=== PATIENT | female | born 1955 | race Caucasian/White ===

== ENCOUNTER 2019-03-18 15:31 | Inpatient (IN) | payer OTHER ==
[~2019-03-18] VITALS: Wt 85.0 kg
[2019-03-18] MEDS ORDERED: MULT-902 PO (17:20)
[2019-03-18] MEDS ORDERED: morphine 4 MG/ML VIAL IV STA (17:40)
--- NOTE | 2019-03-18 17:49 | CONS ---
Assessment/Plan Assessment/Plan Assessment/Plan (Daily) Pt is 63 yo female who presents with completely dislocated ankle with impending open fracture of the RIGHT ANKLE DISTAL TIBIAL PILON AND FIBULA FRACTURE - PLAN FOR URGENT RIGHT ANKLE DISTAL TIBIAL PILON AND FIBULA FRACTURE CLOSED REDUCTION AND PLACEMENT OF EXTERNAL FIXATOR - NPO - IVF - PREOP CLEARANCE BY HOSPITALIST - STEPHEN TO THE RIGHT LEG - plan for CT scan post op with plan to return to the OR in 1-2 weeks once the swelling has resolved for final fixation -- Ciera RIVERA MD Consultation Date/Type/Reason Admit Date/Time 03/18/19 Date of Consultation: March 18, 2019 Type of Consult Orthopedic Surgery Date/Time of Note DATE: 03/18/19 TIME: 17:43 Hx of Present Illness Patient is a 63-year-old female who presented from clinic today with a fracture dislocation of the right medial pilon and fibula. Patient had a slip and fall on 03/15/2019 during work and initially went to [facility] where x- rays were obtained and patient was not reduced and put into a short leg splint. Patient was sent urgently to the emergency room from clinic today given her significantly desiccated ankle fracture that had impending potential to break through the skin to become an open fracture. Patient currently denies any numbness or tingling however reports a significant amount of pain. Musculoskeletal: bone/joint pain, restricted range of motion, swelling Past Medical History Medical History: no pertinent history Home Meds Reported Medications Multivitamin/Iron/Folic Acid (Centrum Adults Tablet) 1 Each Tablet, 1 EACH PO DAILY, TAB 03/18/19 Medications Current Medications Ondansetron HCl (Zofran Inj) 4 mg BRIDGE ORDER PRN IV NAUSEA/VOMITING; Start 03/18/19 at 18:00; Stop 03/19/19 at 17:59 Acetaminophen (Tylenol Tab) 650 mg ER BRIDGE PRN PO .MILD PAIN 1-3 OR TEMP; Start 03/18/19 at 18:00; Stop 03/19/19 at 17:59 Allergies: Coded Allergies: No Known Allergy (Unverified , 03/18/19) Past Surgical History Right knee surgery Family History Significant Family History: no pertinent family hx Social History Alcohol Use: none Smoking Status: Never smoker Drug Use: none Exam/Review of Systems Exam Vitals Vital Signs Date Temp Pulse Resp B/P (MAP) Pulse Ox O2 O2 Flow FiO2 Time Delivery Rate 03/18/19 97.8 103 18 143/76 99 15:37 (98) Constitutional: alert, oriented, well developed Musculoskeletal: other (RLE/ Splint intact with fracture blisters, medially and latera, toes wiggle, SILT to the m/l/d/p/fdws, cr brisk with significant swelling and effusion) Results Result Diagram: 03/18/19 1700 03/18/19 1700 Results 24hrs Laboratory Tests Test 03/18/19 17:00 White Blood Count 9.5 Red Blood Count 4.18 L Hemoglobin 12.8 Hematocrit 39.1 Mean Corpuscular Volume 93.5 Mean Corpuscular Hemoglobin 30.6 Mean Corpuscular Hemoglobin Concent 32.7 Red Cell Distribution Width 11.9 Platelet Count 253 Mean Platelet Volume 10.2 Immature Granulocytes % 0.200 Neutrophils % 69.7 Lymphocytes % 21.5 Monocytes % 8.1 Eosinophils % 0.1 Basophils % 0.4 Nucleated Red Blood Cells % 0.0 Immature Granulocytes # 0.020 Neutrophils # 6.6 Lymphocytes # 2.0 Monocytes # 0.8 Eosinophils # 0.0 Basophils # 0.0 Nucleated Red Blood Cells # 0.0 Sodium Level 140 Potassium Level 5.7 H Chloride Level 104 Carbon Dioxide Level 27 Anion Gap 9 Blood Urea Nitrogen 17 Creatinine 0.59 Est Glomerular Filtrat Rate mL/min > 60 Glucose Level 94 Calcium Level 9.2 Total Bilirubin 0.9 Direct Bilirubin 0.00 Indirect Bilirubin 0.9 Aspartate Amino Transf (AST/SGOT) 79 H Alanine Aminotransferase (ALT/SGPT) 17 Alkaline Phosphatase 85 Total Protein 8.7 H Albumin 4.6 Globulin 4.10 H Albumin/Globulin Ratio 1.12 Medications Medication Current Medications Ondansetron HCl (Zofran Inj) 4 mg BRIDGE ORDER PRN IV NAUSEA/VOMITING; Start 03/18/19 at 18:00; Stop 03/19/19 at 17:59 Acetaminophen (Tylenol Tab) 650 mg ER BRIDGE PRN PO .MILD PAIN 1-3 OR TEMP; Start 03/18/19 at 18:00; Stop 03/19/19 at 17:59 ANIBAL RIVERA MD March 18, 2019 17:48
[2019-03-18] MEDS ORDERED: CEFAZOLIN 2 GM/50 ML (PMX) 50 ML IVPB ONE (18:00)
[2019-03-18] MEDS ORDERED: ONDANSETRON 4 MG INJ IV PRN ×4 (18:00→23:00)
[2019-03-18] MEDS ORDERED: ACETAMINOPHEN 325 MG TAB PO PRN (18:00)
--- NOTE | 2019-03-18 18:25 | HP ---
Date/Time of Note Date/Time of Note DATE: 03/18/19 TIME: 18:17 Assessment/Plan VTE Prophylaxis Pharmacological prophylaxis: NA/contraindicated Pharm contraindication: surgical contra Assessment/Plan Assessment/Plan 63 yo woman with no PMH presents with R ankle fracture #R ankle fracture - Plan for operative fixation tonight by Dr. Pardo - IV opioid analgesics for pain control. NPO until surgery - Patient reports ability to attain >5 METS without chest pain. She is medically optimized for surgery with no further cardiac or medical workup needed prior to OR. #Hyperkalemia - True hyperkalemia rarely appears in the presence of normal renal function and the absence of other metabolic abnormalities. - Likely pseudohyperkalemia from hemolysis. Will repeat BMP in AM. Result Diagram: 03/18/19 1700 03/18/19 1700 HPI/ROS Admit Date/Time Admit Date/Time 03/18/19 Hx of Present Illness Ms Hoover is a pleasant 63-year-old woman sent to the ED by Dr. Pardo with a fracture dislocation of the right medial pilon and fibula. She had a slip and fall on 03/15/2019 during work and initially went to [facility] where x-rays were obtained and patient was not reduced and put into a short leg splint. Patient was sent urgently to the emergency room from [facility] today given her significantly desiccated ankle fracture that had impending potential to break through the skin to become an open fracture. Patient currently denies any numbness or tingling however rep orts a significant amount of pain. She reports good exercise tolerance with the ability to climb two flights of stairs without dyspnea or chest pain. Denies heart failure symptoms like orthopnea or PND. ROS 12 point review of systems done, negative except per HPI. PMH/Family/Social Past Medical History Medical History: no pertinent history Medications Current Medications Ondansetron HCl (Zofran Inj) 4 mg BRIDGE ORDER PRN IV NAUSEA/VOMITING Last administered on 03/18/19at 17:45; Admin Dose 4 MG; Start 03/18/19 at 18:00; Stop 03/19/19 at 17:59 Acetaminophen (Tylenol Tab) 650 mg ER BRIDGE PRN PO .MILD PAIN 1-3 OR TEMP; Start 03/18/19 at 18:00; Stop 03/19/19 at 17:59 Cefazolin Sodium/ Dextrose 50 ml @ 100 mls/hr PRE-OP ONCE IVPB ; Start 03/18/19 at 18:00; Stop 03/18/19 at 18:29 Coded Allergies: No Known Allergy (Unverified , 03/18/19) Past Surgical History R knee repair after skiing accident Family History Significant Family History: no pertinent family hx Social History 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 Alcohol Use: occasionally Smoking Status: Never smoker Drug Use: none Exam/Review of Systems Vital Signs Vitals Vital Signs Date Temp Pulse Resp B/P (MAP) Pulse Ox O2 O2 Flow FiO2 Time Delivery Rate 03/18/19 97.8 103 18 143/76 99 15:37 (98) Exam Exam Gen: Well appearing woman in some discomfort Eyes: PERRL, no icterus HEENT: Moist mucous membranes, clear oropharynx Neck: Supple, no JVD Card: Regular rate and rhythm, no murmurs Pulm: Clear to auscultation bilaterally Abd: Soft, nontender, nondistended Ext: R ankle in rigid cast. L leg no edema, good peripheral pulses. Skin: warm, dry, well perfused. ANNAMARIA QUINTEROS MD March 18, 2019 18:25
[2019-03-18] MEDS ORDERED: NACL 0.9% 3 ML SYG IV SCH (18:30)
--- NOTE | 2019-03-18 19:27 | ERD ---
ER Documentation Chief Complaint Chief Complaint send by dr horton [facility]op [facility] HPI 63-year-old female presenting with right ankle pain. She was sent here by her orthopedist for urgent surgery. Patient had a fall about 3 days ago at ground level. She went to an outside ER and was referred to orthopedics. She denies any numbness or tingling in her right lower extremity. She denies any other injuries from the fall. Currently her pain is an 8 out of 10. Worse with movement. ROS All systems reviewed and are negative except as per history of present illness. Medications Home Meds Reported Medications Multivitamin/Iron/Folic Acid (Centrum Adults Tablet) 1 Each Tablet, 1 EACH PO DAILY, TAB 03/18/19 Allergies Allergies: Coded Allergies: No Known Allergy (Unverified , 03/18/19) PMhx/Soc Medical and Surgical Hx: pt denies Medical Hx History of Surgery: Yes (Right knee surgery) Hx Alcohol Use: Yes (Occasionally) Hx Substance Use: No Hx Tobacco Use: No Smoking Status: Never smoker FmHx Family History: No diabetes Physical Exam Vitals Vital Signs Date Temp Pulse Resp B/P (MAP) Pulse Ox O2 O2 Flow FiO2 Time Delivery Rate 03/18/19 97.8 103 18 143/76 99 15:37 (98) Physical Exam Const: No acute distress Head: Atraumatic Eyes: Normal Conjunctiva ENT: Normal External Ears, Nose and Mouth. Neck: Full range of motion. No meningismus. Resp: Clear to auscultation bilaterally Cardio: Regular rate and rhythm, no murmurs Abd: Soft, non tender, non distended. Normal bowel sounds Skin: No petechiae or rashes Back: No midline or flank tenderness Ext: Right lower extremity in splint. Good cap refill at the toes. Sensation intact in all toes of the right foot. Knee right lower extremity above the knee appears normal without any deformities. Full range of motion of the hip and knee. All other extremities normal to inspection and palpation. Neur: Awake and alert Psych: Normal Mood and Affect Result Diagram: 03/18/19 1700 03/18/19 1700 Results 24 hrs Laboratory Tests Test 03/18/19 17:00 White Blood Count 9.5 10^3/ul Red Blood Count 4.18 10^6/ul Hemoglobin 12.8 g/dl Hematocrit 39.1 % Mean Corpuscular Volume 93.5 fl Mean Corpuscular Hemoglobin 30.6 pg Mean Corpuscular Hemoglobin Concent 32.7 g/dl Red Cell Distribution Width 11.9 % Platelet Count 253 10^3/UL Mean Platelet Volume 10.2 fl Immature Granulocytes % 0.200 % Neutrophils % 69.7 % Lymphocytes % 21.5 % Monocytes % 8.1 % Eosinophils % 0.1 % Basophils % 0.4 % Nucleated Red Blood Cells % 0.0 /100WBC Immature Granulocytes # 0.020 10^3/ul Neutrophils # 6.6 10^3/ul Lymphocytes # 2.0 10^3/ul Monocytes # 0.8 10^3/ul Eosinophils # 0.0 10^3/ul Basophils # 0.0 10^3/ul Nucleated Red Blood Cells # 0.0 10^3/ul Sodium Level 140 mmol/L Potassium Level 5.7 mmol/L Chloride Level 104 mmol/L Carbon Dioxide Level 27 mmol/L Anion Gap 9 Blood Urea Nitrogen 17 mg/dl Creatinine 0.59 mg/dl Est Glomerular Filtrat Rate mL/min > 60 mL/min Glucose Level 94 mg/dl Calcium Level 9.2 mg/dl Total Bilirubin 0.9 mg/dl Direct Bilirubin 0.00 mg/dl Indirect Bilirubin 0.9 mg/dl Aspartate Amino Transf (AST/SGOT) 79 IU/L Alanine Aminotransferase (ALT/SGPT) 17 IU/L Alkaline Phosphatase 85 IU/L Total Protein 8.7 g/dl Albumin 4.6 g/dl Globulin 4.10 g/dl Albumin/Globulin Ratio 1.12 Current Medications Medications Dose Sig/Arslan Start Time Status Last (Trade) Ordered Route PRN Stop Time Admin Dose Reason Admin Ondansetron 4 mg BRIDGE ORDER 03/18/19 03/18/19 HCl (Zofran PRN IV 18:00 17:45 Inj) NAUSEA/VOMITI 03/19/19 17:59 NG 650 mg ER BRIDGE 03/18/19 Acetaminophen PRN PO 18:00 (Tylenol .MILD PAIN 03/19/19 17:59 Tab) 1-3 OR TEMP Morphine 4 mg ONCE STAT 03/18/19 DC 03/18/19 Sulfate IV 17:40 17:45 (morphine) 03/18/19 17:41 Cefazolin 50 ml @ PRE-OP ONCE 03/18/19 DC 03/18/19 Sodium/ 100 mls/hr IVPB 18:00 19:18 Dextrose 03/18/19 18:29 Morphine 4 mg Q3H PRN 03/18/19 Sulfate IV SEVERE 18:30 (morphine) PAIN LEVEL 7-10 Sodium 1,000 ml @ [id number] IV 03/18/19 Chloride 75 mls/hr 21:00 IV Flush 3 ml PER 03/18/19 (NS 3 ml) PROTOCOL IV 18:30 Ondansetron 4 mg Q6H PRN 03/18/19 HCl (Zofran IV 18:30 Inj) NAUSEA/VOMITI NG Procedures/MDM EMERGENT LABS AND DIAGNOSTIC STUDIES: Lab Results above were reviewed and interpreted by me. CBC: no anemia or evidence of infection CMP: Hyperkalemia without evidence of renal failure. Likely lab error. Repeat pending. No e/o severe acidosis, alkalosis, renal failure, diabetic ketoacidosis, liver disease Coags unremarkable 12-lead EKG was interpreted by Rashi Garcia MD: Normal Sinus Rhythm with ventricular rate of 86 beats per minute Normal axis Normal intervals Nonspecific T wave abnormality in V4 and V5 No acute ST or T wave changes suggestive of acute ischemia or STEMI. Radiology Results as interpreted by Radiology below were reviewed by SGrant Garcia MD: Chest x-ray shows no significant abnormalities Initial Nursing notes reviewed. Previous Medical Records requested via the Electronic Health Record. EMERGENCY DEPARTMENT COURSE / MEDICAL DECISION MAKING: Patient is presenting with right ankle fracture that needs external fixation. She has no other complaints today. She was given morphine for her pain. Her preop labs were ordered and showed hyperkalemia, but there is no evidence of renal failure, so I feel this is a lab error. Chest x-ray and EKG were ordered and were unremarkable. I communicated this lab abnormality with the admitting doctor. Inpatient team to follow-up on repeat potassium and clear patient for surgery today. Accepting Care Team: Current data and ongoing care discussed. Time: Time of admission Primary Provider: Dr. Veloz Consulting: Dr. Horton Outstanding Data: repeat potassium Departure Diagnosis: Primary Impression: Closed right ankle fracture Encounter type: initial encounter Qualified Codes: S82.891A - Other fracture of right lower leg, initial encounter for closed fracture Condition: JHONATAN Pereyra MD March 18, 2019 19:27
[2019-03-18] MEDS ORDERED: DIPHENHYDRAMINE 25 MG CAP PO PRN (20:30)
[2019-03-18] MEDS ORDERED: CEFAZOLIN 1 GM INJ IV SCH (20:30)
--- NOTE | 2019-03-18 21:51 | PREAC ---
Date/Time of Note Date/Time of Note DATE: 03/18/19 TIME: 21:50 Anesthesia Eval and Record Evaluation Time Pre-Procedure Interview DATE: 03/18/19 TIME: 21:50 Age 63 Sex female NPO: 8 hrs Preoperative diagnosis Right Ankle Fracture Planned procedure Right Ankle Closed reduction and external fixation Past Medical History Past Medical History: None Surgery & Anesthesia Issues No known issue Meds Anticoagulation: No Beta Hubert within 24 hr: No Reason Beta Hubert not given: Pt. not on B-Hubert Reported Medications Multivitamin/Iron/Folic Acid (Centrum Adults Tablet) 1 Each Tablet, 1 EACH PO DAILY, TAB 03/18/19 Current Medications Ondansetron HCl (Zofran Inj) 4 mg BRIDGE ORDER PRN IV NAUSEA/VOMITING Last administered on 03/18/19at 17:45; Admin Dose 4 MG; Start 03/18/19 at 18:00; Stop 03/19/19 at 17:59 Acetaminophen (Tylenol Tab) 650 mg ER BRIDGE PRN PO .MILD PAIN 1-3 OR TEMP; Start 03/18/19 at 18:00; Stop 03/19/19 at 17:59 Morphine Sulfate (morphine) 4 mg Q3H PRN IV SEVERE PAIN LEVEL 7-10; Start 03/18/19 at 18:30 Sodium Chloride 1,000 ml @ 75 mls/hr [id number] IV ; Start 03/18/19 at 21:00 IV Flush (NS 3 ml) 3 ml PER PROTOCOL IV ; Start 03/18/19 at 18:30 Ondansetron HCl (Zofran Inj) 4 mg Q4H PRN IV NAUSEA AND/OR VOMITING; Start 03/18/19 at 20:30 Diphenhydramine HCl (Benadryl) 25 mg Q4H PRN PO ITCHING; Start 03/18/19 at 20:30 Rivaroxaban (Xarelto) 10 mg WITH DINNER PO ; Start 03/19/19 at 18:00 Cefazolin Sodium 50 ml @ 100 mls/hr Q8H IVPB ; Start 03/19/19 at 03:00; Stop 03/20/19 at 19:29 Meds reviewed: Yes Allergies Coded Allergies: No Known Allergy (Unverified , 03/18/19) Allergies Reviewed: Yes Labs/Studies Labs Reviewed: Reviewed by anesthesiologist Result Diagram: 03/18/19 1700 03/18/19 1943 Laboratory Tests 03/18/19 17:00 03/18/19 19:43 test: N/A Studies: ECG (n/a), CXR (n/a) Pre-procedure Exam Last vitals Vital Signs Date Temp Pulse Resp B/P (MAP) Pulse Ox O2 O2 Flow FiO2 Time Delivery Rate 03/18/19 97.8 94 18 136/75 99 Room Air 17:00 (95) Airway: Adequate mouth opening, Adequate thyromental dist Mallampati: Mallampati II Teeth: Normal Lung: Normal Heart: Normal ASA Physical Status ASA physical status: 2 Emergency: None Planned Anesthetic General/MAC: ETT Nerve block: Femoral (right), Sciatic (right) Planned Pain Management Single shot nerve block, Parenteral pain med Pre-operative Attestations Prior to commencing anesthesia and surgery, the patient was re-evaluated, there was verification of: *The patient's identity *The results of appropriate recent lab work and preoperative vital signs *The above evaluation not changing prior to induction *Anesthetic plan, risk benefits, alternative and complications discussed with patient/family; questions answered; patient/family understands, accepts and wishes to proceed. PETE CARR MD March 18, 2019 21:51
[2019-03-18] MEDS ORDERED: ROCURONIUM 50 MG INJ ONE (21:54)
[2019-03-18] MEDS ORDERED: PROPOFOL 20 ML ONE (21:54)
[2019-03-18] MEDS ORDERED: CEFAZOLIN 1 GM INJ ONE (21:54)
[2019-03-18] MEDS ORDERED: MIDAZOLAM 1 MG/ML 2 ML INJ ONE (21:55)
[2019-03-18] MEDS ORDERED: ROPIVACAINE 0.5 % 30 ML VIAL ONE (21:56)
[2019-03-18] MEDS ORDERED: SEVOFLURANE 15 MIN ONE (22:00)
[2019-03-18] MEDS ORDERED: PHENYLephrine (100 MCG/ML) 10ML SYG ONE (22:00)
[2019-03-18] MEDS ORDERED: KETOROLAC 30 MG INJ ONE (22:20)
[2019-03-18] MEDS ORDERED: DEXAMETHASONE 4 MG/ML 5 ML INJ ONE (22:20)
[2019-03-18] MEDS ORDERED: METOCLOPRAMIDE 10 MG INJ ONE (22:20)
[2019-03-18] MEDS ORDERED: ONDANSETRON 4 MG INJ ONE (22:20)
[2019-03-18] MEDS ORDERED: hydrALAzine 20 MG INJ IV PRN (23:00)
[2019-03-18] MEDS ORDERED: EPHEDrine 25 MG/5 ML SYG IV PRN (23:00)
[2019-03-18] MEDS ORDERED: FENTAnyl 50 MCG/ML VIAL IV PRN ×3 (23:00)
[2019-03-18] MEDS ORDERED: OXYCODONE/ACETAMINOPHEN (5/325) TAB PO PRN ×2 (23:00)
[2019-03-18] MEDS ORDERED: DIPHENHYDRAMINE 50 MG INJ IV PRN (23:00)
[2019-03-18] MEDS ORDERED: LABETALOL HCL 20MG INJ IV PRN (23:00)
[2019-03-18] MEDS ORDERED: METOCLOPRAMIDE 10 MG INJ IV PRN (23:00)
[2019-03-18] MEDS ORDERED: MEPERIDINE 25 MG INJ IV PRN (23:00)
[2019-03-18] MEDS ORDERED: HYDROmorphONE 1 MG/5 ML IV SYRINGE IV PRN ×3 (23:00)
[2019-03-18] MEDS ORDERED: NEOMYC/POLYMYX/BACIT 30 GM OINT ONE (23:33)
[2019-03-18] MEDS ORDERED: SUGAMMADEX SODIUM 200 MG/2 ML VIAL IV ONE (23:38)
[2019-03-19] VITALS (42 sets, daily range): BP systolic 81–144; BP diastolic 50–92; PULSE 73–170; RESP 10–24
--- NOTE | 2019-03-19 00:08 | OPR ---
Date/Time of Note Date/Time of Note DATE: 03/19/19 TIME: 00:01 Operative Report Procedure Date: March 19, 2019 Preoperative Diagnosis Right ankle distal tibial pilon and fibula fracture dislocation Postoperative Diagnosis Right ankle distal tibial pilon and fibula fracture dislocation Operation/Procedure Performed Right ankle distal tibial pilon and fibular fracture dislocation closed reduction Right ankle external fixator placement multiplanar Surgeon Isael Rivera MD [employer] None Anesthesia Type: general Anesthesiologist: PETE CARR MD Tourniquet Time: None Estimated Blood Loss: minimal Transfusion none Specimen None Grafts/Implants 2 5.0 mm Schanz pins in 1 6.0 mm Schanz pin with pin to bar and bar to bar construct Complications none Pt Condition Post Procedure: stable Disposition: PACU Indications Patient is a 63-year-old female who sustained a right ankle fracture location 2 days ago. Patient presented initially with a complete ankle fracture dislocation of the tibial peel on and fibula given the significant displacement and amount of swelling and fracture blistering patient indicated for urgent closed reduction and external fixator placement... Risk Note: Patient was explained the risks and benefits of surgery and the patient's cachil dehe language including not limited to infection, bleeding, injury to blood vessels, nerves, ligaments or tendons. Risks of anesthesia, deep vein thrombosis and need for reduce future surgery. Patient acknowledged these risk by signing the surgical consent form. Procedure Description Patient was met in the preoperative holding area the operative extremity was marked and confirmed with both the patient and the consent. Patient was then brought to the operative theater placed supine the operative table given preoperative antibiotics and preoperative anesthesia. Patient was then prepped draped in normal sterile fashion and all parties in the room agreed it was correct patient extremity and procedure. Attention was initially turned to the midshaft of the tibia where the first pin was established and inserted medially to the tibial shaft and initially drilled and the pin was placed with care to avoid any significant placement past the posterior cortex. Attention was then turned to the calcaneal pin which was placed medially to laterally with care to avoid any injury to the surrounding neurovascular structures which was placed behind the posterior tibial artery, nerve and vein. The pin was brought to the lateral side. And the pin-to-bar construct was then placed with x-rays confirming that the ankle mortise was been brought out to appropriate length, both in the coronal and sagittal position and at the tibia was up under the talus. Once final x-rays were confirmed, the wounds were irrigated and then dressed with Xeroform and a Biopatch in place and a short leg splint in the neutral position. At the end the case all sponge and needle counts were correct. Patient brought to PACU in stable condition with the toes warm and well-perfused. Plan will be to obtain a CT scan tomorrow with further plan for final operative fixation in the next 1 to 2 weeks once swelling has resolved. ISAEL RIVERA MD March 19, 2019 00:08
--- NOTE | 2019-03-19 00:14 | PAC ---
Date/Time of Note Date/Time of Note DATE: 03/19/19 TIME: 00:14 Post-Anesthesia Notes Post-Anesthesia Note Last documented vital signs Vital Signs Date Temp Pulse Resp B/P (MAP) Pulse Ox O2 O2 Flow FiO2 Time Delivery Rate 03/19/19 98.5 94 18 136/75 99 Room Air 00:10 (95) Activity: WNL Respiratory function: WNL Cardiovascular function: WNL Mental status: Baseline Pain reasonably controlled: Yes Hydration appropriate: Yes Nausea/Vomiting absent: Yes PETE CARR MD March 19, 2019 00:14
[2019-03-19] MEDS ORDERED: FUROSEMIDE 20 MG INJ ONE (01:06)
[2019-03-19] MEDS ORDERED: ALBUTEROL 0.083% (NEB) 2.5 MG/3 ML AMP ONE (01:07)
[2019-03-19] MEDS ORDERED: ALBUTEROL 0.083% (NEB) 2.5 MG/3 ML AMP HHN ONE (01:15)
[2019-03-19] MEDS ORDERED: FUROSEMIDE 20 MG INJ IV ONE (01:30)
[2019-03-19] MEDS: SOD CHLORIDE 0.9% 1,000 ML IV SCH ×3 (02:33→23:40)
[2019-03-19] MEDS: CEFAZOLIN 1 GM/50 ML (PMX) 50 ML IVPB SCH ×3 (02:34→18:37)
[2019-03-19] MEDS ORDERED: SOD CHLORIDE 0.9% 500 ML IV ONE (04:30)
[2019-03-19] MEDS ORDERED: ALBUTEROL/IPRATROPIUM (NEB) 3 ML AMP HHN PRN (05:00)
[2019-03-19] MEDS ORDERED: ALBUTEROL/IPRATROPIUM (NEB) 3 ML AMP HHN SCH (05:00)
--- NOTE | 2019-03-19 08:48 | RADRPT ---
Vent Rate: 74 bpm RR Interval: 816 msec MD Interval: 168 msec QRS Duration: 89 msec QT Interval: 402 msec QTC Interval: 445 msec P-R-T [place]: 70 - 25 - 51 degrees Sinus rhythm. NORMAL ECG Electronically Signed By: Anthony Fierro
--- NOTE | 2019-03-19 10:22 | OPPN ---
Date/Time of Note Date/Time of Note DATE: 03/19/19 TIME: 10:19 Anesthesia Follow up Anesthesia Follow up Last documented vital signs Vital Signs Date Temp Pulse Resp B/P (MAP) Pulse Ox O2 O2 Flow FiO2 Time Delivery Rate 03/19/19 Nasal 3.0 08:04 Cannula 03/19/19 75 08:00 03/19/19 98.2 18 113/56 95 07:34 (75) Respiratory function: WNL Cardiovascular function: WNL Comments Patient is stable no pain, laying comfortably breathing room air no distress, Sat 97, no distress. Lungs are clear. vital signs are stable. Her NPPE seems to be resolving and patient can be discharged home today. PETE CARR MD March 19, 2019 10:22
[2019-03-19] MEDS: morphine 4 MG/ML VIAL IV PRN ×2 (13:12→22:35)
--- NOTE | 2019-03-19 14:44 | PN ---
Date/Time of Note Date/Time of Note DATE: 03/19/19 TIME: 14:40 Assessment/Plan VTE Prophylaxis Risk score (from Ns)>0 risk: 2 SCD applied (from Ns): Yes Pharmacological prophylaxis: NA/contraindicated Pharm contraindication: surgical contra Lines/Catheters IV Catheter Type (from Nrsg): Peripheral IV Urinary Cath still in place: No Assessment/Plan Assessment/Plan 63 yo woman with no PMH presents with R ankle fracture #R ankle fracture - s/p operative fixation 03/[address] Pardo - Continue morphine for analgesia - 24 hours of Ancef - anticoagulation per ortho - Continue PT - Home health arranged, along with walker and bedside commode Dispo: Anticipate discharge tomorrow, after completing 24 hrs Ancef. Anticoagulation and analgesia prescriptions per ortho. Result Diagram: 03/19/1972503/19/19725 Subjective 24 Hr Interval Summary Free Text/Dictation Went for surgery last night. This morning feeling well. Walking with physical therapy. Exam/Review of Systems Exam Vitals Vital Signs Date Temp Pulse Resp B/P (MAP) Pulse Ox O2 O2 Flow FiO2 Time Delivery Rate 03/19/19 80 12:00 03/19/19 98.0 18 118/58 94 11:08 (78) 03/19/19 Nasal 3.0 08:04 Cannula Intake and Output 03/18/19 03/18/19 03/19/19 1515:00 23:00 07:00 IntakeIntake Total 220 ml OutputOutput Total 1300 ml BalanceBalance -1080 ml Exam Gen: Well appearing woman in no discomfort Eyes: PERRL, no icterus HEENT: Moist mucous membranes, clear oropharynx Neck: Supple, no JVD Card: Regular rate and rhythm, no murmurs Pulm: Clear to auscultation bilaterally Abd: Soft, nontender, nondistended Ext: R ankle elevated with external fixator. L leg no edema, good peripheral pulses. Skin: warm, dry, well perfused. Results Results 24hrs Laboratory Tests Test 03/18/19 17:00 03/18/19 19:43 03/19/19 07:26 White Blood Count 9.5 8.7 Red Blood Count 4.18 L 3.77 L Hemoglobin 12.8 11.8 L Hematocrit 39.1 35.3 L Mean Corpuscular Volume 93.5 93.6 Mean Corpuscular Hemoglobin 30.6 31.3 Mean Corpuscular Hemoglobin Concent 32.7 33.4 Red Cell Distribution Width 11.9 12.0 Platelet Count 253 216 Mean Platelet Volume 10.2 9.9 Immature Granulocytes % 0.200 0.500 H Neutrophils % 69.7 92.0 H Lymphocytes % 21.5 6.0 L Monocytes % 8.1 1.5 Eosinophils % 0.1 0.0 Basophils % 0.4 0.0 Nucleated Red Blood Cells % 0.0 0.0 Immature Granulocytes # 0.020 0.040 H Neutrophils # 6.6 8.0 H Lymphocytes # 2.0 0.5 L Monocytes # 0.8 0.1 L Eosinophils # 0.0 0.0 Basophils # 0.0 0.0 Nucleated Red Blood Cells # 0.0 0.0 Sodium Level 140 143 Potassium Level 5.7 H 4.1 3.6 Chloride Level 104 107 Carbon Dioxide Level 27 27 Anion Gap 9 9 Blood Urea Nitrogen 17 17 Creatinine 0.59 0.66 Est Glomerular Filtrat Rate mL/min > 60 > 60 Glucose Level 94 177 Calcium Level 9.2 8.4 Total Bilirubin 0.9 0.5 Direct Bilirubin 0.00 0.00 Indirect Bilirubin 0.9 0.5 Aspartate Amino Transf (AST/SGOT) 79 H 40 Alanine Aminotransferase (ALT/SGPT) 17 26 Alkaline Phosphatase 85 66 Total Protein 8.7 H 6.4 # Albumin 4.6 3.5 # Globulin 4.10 H 2.90 Albumin/Globulin Ratio 1.12 1.20 Prothrombin Time 12.7 Prothrombin Time Ratio 1.0 INR International Normalized Ratio 0.94 Activated Partial Thromboplast Time 28.7 Phosphorus Level 4.6 Magnesium Level 1.8 Medications Medication Current Medications Ondansetron HCl (Zofran Inj) 4 mg BRIDGE ORDER PRN IV NAUSEA/VOMITING Last administered on 03/18/19at 17:45; Admin Dose 4 MG; Start 03/18/19 at 18:00; Stop 03/19/19 at 17:59 Acetaminophen (Tylenol Tab) 650 mg ER BRIDGE PRN PO .MILD PAIN 1-3 OR TEMP; Start 03/18/19 at 18:00; Stop 03/19/19 at 17:59 Morphine Sulfate (morphine) 4 mg Q3H PRN IV SEVERE PAIN LEVEL 7-10 Last administered on 03/19/19at 13:12; Admin Dose 4 MG; Start 03/18/19 at 18:30 Sodium Chloride 1,000 ml @ 75 mls/hr [id number] IV Last administered on 03/19/19at 10:46; Admin Dose 75 MLS/HR; Start 03/18/19 at 21:00 IV Flush (NS 3 ml) 3 ml PER PROTOCOL IV ; Start 03/18/19 at 18:30 Ondansetron HCl (Zofran Inj) 4 mg Q4H PRN IV NAUSEA AND/OR VOMITING; Start 03/18/19 at 20:30 Diphenhydramine HCl (Benadryl) 25 mg Q4H PRN PO ITCHING; Start 03/18/19 at 20:30 Rivaroxaban (Xarelto) 10 mg WITH DINNER PO ; Start 03/19/19 at 17:55 Cefazolin Sodium 50 ml @ 100 mls/hr Q8H IVPB Last administered on 03/19/19at 10:38; Admin Dose 100 MLS/HR; Start 03/19/19 at 03:00; Stop 03/20/19 at 19:29 Albuterol/ Ipratropium (Duoneb) 3 ml Q4H RESP THERAPY PRN HHN WHEEZING AND SOB; Start 03/19/19 at 05:00 ANNAMARIA QUINTEROS MD March 19, 2019 14:44
[2019-03-19] MEDS: RIVAROXABAN 10 MG TABLET PO SCH (18:38)
--- NOTE | 2019-03-19 19:58 | PN ---
Date/Time of Note Date/Time of Note DATE: 03/19/19 TIME: 19:58 Assessment/Plan Lines/Catheters IV Catheter Type (from [facility]): Peripheral IV Vieyra in Place (from [facility]): No Exam/Review of Systems Vital Signs Vitals Vital Signs Date Temp Pulse Resp B/P (MAP) Pulse Ox O2 O2 Flow FiO2 Time Delivery Rate 03/19/19 98.3 93 18 126/61 92 Room Air 19:37 (82) 03/19/19 3.0 08:04 Intake and Output 03/18/19 03/18/19 03/19/19 1414:59 22:59 06:59 IntakeIntake Total 220 ml OutputOutput Total 1300 ml BalanceBalance -1080 ml Results Result Diagram: 03/19/19 0726 03/19/19 0726 ANIBAL RIVERA MD March 19, 2019 19:58
[2019-03-20] VITALS (11 sets, daily range): BP systolic 113–138; BP diastolic 55–65; PULSE 78–105; RESP 16–20
[2019-03-20] MEDS: morphine 4 MG/ML VIAL IV PRN ×6 (01:30→18:25)
[2019-03-20] MEDS: CEFAZOLIN 1 GM/50 ML (PMX) 50 ML IVPB SCH ×3 (03:17→18:26)
[2019-03-20] MEDS: SOD CHLORIDE 0.9% 1,000 ML IV SCH ×2 (08:29→22:46)
--- NOTE | 2019-03-20 15:55 | PN ---
Date/Time of Note Date/Time of Note DATE: 03/20/19 TIME: 15:55 Assessment/Plan Lines/Catheters IV Catheter Type (from [facility]): Peripheral IV Vieyra in Place (from [facility]): No Exam/Review of Systems Vital Signs Vitals Vital Signs Date Temp Pulse Resp B/P (MAP) Pulse Ox O2 O2 Flow FiO2 Time Delivery Rate 03/20/19 98.0 90 16 138/65 94 15:06 (89) 03/20/19 Nasal 3.0 04:00 Cannula Intake and Output 03/19/19 03/19/19 03/20/19 1515:00 23:00 07:00 IntakeIntake Total 850 ml 200 ml OutputOutput Total 750 ml BalanceBalance 100 ml 200 ml Results Result Diagram: 03/19/19 0726 03/19/19 0726 ANIBAL RIVERA MD March 20, 2019 15:55
--- NOTE | 2019-03-20 16:42 | PN ---
Date/Time of Note Date/Time of Note DATE: 03/20/19 TIME: 16:39 Assessment/Plan VTE Prophylaxis Risk score (from Nsg)>0 risk: 3 SCD applied (from Ns): Yes Pharmacological prophylaxis: NA/contraindicated Pharm contraindication: surgical contra Lines/Catheters IV Catheter Type (from Nrsg): Peripheral IV Urinary Cath still in place: No Assessment/Plan Assessment/Plan 63 yo woman with no PMH presents with R ankle fracture #R ankle fracture - s/p operative fixation 03/[address] Pardo - Continue morphine for analgesia - s/p Ancef - 3-month risk of thrombosis is <2% in ortho surgery below the knee. The patient is planned for revision surgery in 10-14 days, so it is reasonable to hold off on anticoagulation until then. - Continue PT - Home health arranged, along with walker and bedside commode Dispo: Anticipate discharge in 24-48 hours when pain is adequatelly controlled and patient off oxygen. Analgesia prescriptions per ortho. Result Diagram: 03/19/19 0703/19/19 07 Subjective 24 Hr Interval Summary Free Text/Dictation New hypoxia overnight requiring 2L nasal cannula. Patient is continuing to do well with incentive spirometry, reaching 2.0-2.5 L. Pain adequately controlled. I suggested discharge but patient is feeling much worse than yesterday and requests one more day inpatient. Exam/Review of Systems Exam Vitals Vital Signs Date Temp Pulse Resp B/P (MAP) Pulse Ox O2 O2 Flow FiO2 Time Delivery Rate 03/20/19 98.0 90 16 138/65 94 15:06 (89) 03/20/19 Nasal 3.0 04:00 Cannula Intake and Output 03/19/19 03/19/19 03/20/19 1515:00 23:00 07:00 IntakeIntake Total 850 ml 200 ml OutputOutput Total 750 ml BalanceBalance 100 ml 200 ml Exam Gen: Well appearing woman in some discomfort Eyes: PERRL, no icterus HEENT: Moist mucous membranes, clear oropharynx Neck: Supple, no JVD Card: Regular rate and rhythm, no murmurs Pulm: Clear to auscultation bilaterally Abd: Soft, nontender, nondistended Ext: R ankle elevated with external fixator. L leg no edema, good peripheral pulses. Skin: warm, dry, well perfused. Medications Medication Current Medications Morphine Sulfate (morphine) 4 mg Q3H PRN IV SEVERE PAIN LEVEL 7-10 Last administered on 03/20/19at 15:36; Admin Dose 4 MG; Start 03/18/19 at 18:30 Sodium Chloride 1,000 ml @ 75 mls/hr [id number] IV Last administered on 03/20/19at 08:29; Admin Dose 75 MLS/HR; Start 03/18/19 at 21:00 IV Flush (NS 3 ml) 3 ml PER PROTOCOL IV ; Start 03/18/19 at 18:30 Ondansetron HCl (Zofran Inj) 4 mg Q4H PRN IV NAUSEA AND/OR VOMITING; Start 03/18/19 at 20:30 Diphenhydramine HCl (Benadryl) 25 mg Q4H PRN PO ITCHING; Start 03/18/19 at 20:30 Rivaroxaban (Xarelto) 10 mg WITH DINNER PO Last administered on 03/19/19at 18:38; Admin Dose 10 MG; Start 03/19/19 at 17:55 Cefazolin Sodium 50 ml @ 100 mls/hr Q8H IVPB Last administered on 03/20/19at 12:04; Admin Dose 100 MLS/HR; Start 03/19/19 at 03:00; Stop 03/20/19 at 19:29 Albuterol/ Ipratropium (Duoneb) 3 ml Q4H RESP THERAPY PRN HHN WHEEZING AND SOB; Start 03/19/19 at 05:00 ANNAMARIA QUINTEROS MD March 20, 2019 16:42
[2019-03-20] MEDS: RIVAROXABAN 10 MG TABLET PO SCH (18:26)
[2019-03-20] MEDS ORDERED: CEPASTAT LOZENGE MT PRN (19:00)
[2019-03-20] MEDS ORDERED: HYDROmorphONE 1 MG/ML SYG IV PRN (19:00)
[2019-03-20] MEDS ORDERED: oxyCODONE 5 MG TAB PO PRN (19:00)
[2019-03-20] MEDS: GABAPENTIN 100 MG CAP PO SCH (22:21)
[2019-03-20] MEDS: IBUPROFEN 800 MG TAB PO SCH (22:23)
[2019-03-20] MEDS: ASCORBIC ACID 500 MG TAB PO SCH (22:38)
[2019-03-20] MEDS: CHOLECALCIFEROL 2,000 UNIT CAP PO SCH (22:38)
[2019-03-21] VITALS (9 sets, daily range): BP systolic 131–147; BP diastolic 68–81; PULSE 72–92; RESP 16–18
[2019-03-21] MEDS: IBUPROFEN 800 MG TAB PO SCH ×2 (08:34→12:20)
[2019-03-21] MEDS: GABAPENTIN 100 MG CAP PO SCH ×2 (08:35→12:20)
[2019-03-21] MEDS: ASCORBIC ACID 500 MG TAB PO SCH (08:35)
[2019-03-21] MEDS: CHOLECALCIFEROL 2,000 UNIT CAP PO SCH (08:35)
[2019-03-21] MEDS ORDERED: IBUP-1542 PO (15:19)
[2019-03-21] MEDS ORDERED: ASPI-817 PO (15:20)
--- NOTE | 2019-03-21 15:21 | PDOCDIS ---
Discharge Instructions CONDITION [id number] Patient Condition: [id number] Good HOME CARE INSTRUCTIONS: [id number] Diet Instructions: [id number] Regular ACTIVITY: [id number] Activity Restrictions: [id number] Slowly Increase Activity FOLLOW UP/APPOINTMENTS Follow-up Plan Follow-up with PCP and orthopedist JORGITO FORD March 21, 2019 15:21
--- NOTE | 2019-03-21 15:24 | DS ---
Date/Time of Note Date/Time of Note DATE: 03/21/19 TIME: 15:21 Discharge Summary Admission/Discharge Info Admit Date/Time March 18, 2019 at 17:39 Discharge Date/Time March 21, 2019 Discharge Diagnosis 63 yo woman with no PMH presents with R ankle fracture #R ankle fracture - s/p operative fixation 03/[address] Pardo -Pain controlled - s/p Ancef - 3-month risk of thrombosis is <2% in ortho surgery below the knee. The patient is planned for revision surgery in 10-14 days, so it is reasonable to hold off on anticoagulation until then, have prescribed aspirin per Ortho recommendations -Home health has been arranged as well as DME's Patient Condition: Good Hospital Course Patient is a 63 yo woman with no PMH presents with R ankle fracture. Patient was seen by Dr. Pardo and underwent an operative fixation of 03/18. Patient was planned for revision surgery in 10 to 14 days, bottle caser to arrange for home health and patient was clear for DC per surgery. On the day of discharge p atient's vitals, labs and physical exam are stable. Home Meds Active Scripts Aspirin* (Aspirin* EC) 81 Mg Tablet., 81 MG PO BID, #14 TAB Prov:JORGITO FORD 03/21/19 Ibuprofen* (Ibuprofen*) 600 Mg Tablet, 600 MG PO Q6H PRN for PAIN LEVEL 6-10, #40 TAB Prov:JORGITO FORD 03/21/19 Reported Medications Multivitamin/Iron/Folic Acid (Centrum Adults Tablet) 1 Each Tablet, 1 EACH PO DAILY, TAB 03/18/19 Follow-up Plan Follow-up with PCP and orthopedist Primary Care Provider Care Physician No Primary Time spent on discharge: > 30 minutes JORGITO FORD March 21, 2019 15:24
[2019-03-21] MEDS: RIVAROXABAN 10 MG TABLET PO SCH (16:49)
== END 2019-03-21 19:15 | disposition home health service (06) | DRG 563 ==
LOC: E/R 15:31 → SUATTDRO 17:38 → REC 17:39 → TEL 20:17
PROVIDERS: ADMIT Internal Medicine; ATTEND Internal Medicine
PROC: 0QSGXZZ Reposition Right Tibia, External Approach (ICD-10-PCS; principal; 2019-03-19)
DX: S82.301A Unspecified fracture of lower end of right tibia, initial encounter for closed fracture (principal); S82.401A Unspecified fracture of shaft of right fibula, initial encounter for closed fracture; W18.30XA Fall on same level, unspecified, initial encounter; E87.5 Hyperkalemia
CPT/HCPCS: 36415; 71045; 73700; 80053; 82306; 83735; 84100; 84132; 85025; 85610; 85730; 93005; 94664; 97110; 97116; 97161; 97530; J0690; J1100; J1885; J1940; J2250; J2270; J2370; J2405; J2765; J2795; J3010; J7030

== ENCOUNTER 2019-04-15 15:43 | Inpatient (IN) | payer OTHER ==
[2019-04-15] VITALS (8 sets, daily range): BP systolic 114–131; BP diastolic 60–75; PULSE 77–98; RESP 16–24; Ht 170.2 cm; Wt 77.0 kg
[~2019-04-15] VITALS: Ht 170.2 cm; Wt 77.0 kg
[~2019-04-15 15:43] MED LIST: ASPI-817 PO; IBUP-1542 PO; MULT-902 PO
--- NOTE | 2019-04-15 17:51 | PREAC ---
Date/Time of Note Date/Time of Note DATE: 04/15/19 TIME: 17:48 Anesthesia Eval and Record Evaluation Time Pre-Procedure Interview DATE: 04/15/19 TIME: 17:48 Age 63 Sex female NPO: 8 hrs Preoperative diagnosis RIGHT ANKLR FX S/P EXTERNAL FIXATION. FX PILON ANF FIBULA Planned procedure REMOVAL OF EXTERNAL FIXATIO orif Past Medical History Past Medical History: None Surgery & Anesthesia Issues Hx of delayed emergence Meds Anticoagulation: No Beta Hubert within 24 hr: No Reason Beta Hubert not given: Pt. not on B-Hubert Active Scripts Aspirin* (Aspirin* EC) 81 Mg Tablet.dr, 81 MG PO BID, #14 TAB Prov:JORGITO FORD 03/21/19 Ibuprofen* (Ibuprofen*) 600 Mg Tablet, 600 MG PO Q6H PRN for PAIN LEVEL 6-10, #40 TAB Prov:JORGITO FORD 03/21/19 Reported Medications Multivitamin/Iron/Folic Acid (Centrum Adults Tablet) 1 Each Tablet, 1 EACH PO DAILY, TAB 03/18/19 Current Medications Lactated Ringer's 1,000 ml @ 25 mls/hr Q24H IV ; Start 04/15/19 at 17:30 Meds reviewed: Yes Allergies Coded Allergies: No Known Allergy (Unverified , 04/15/19) Allergies Reviewed: Yes Labs/Studies Labs Reviewed: Reviewed by anesthesiologist test: N/A Studies: ECG, CXR (SLIGHTLY LARGE HEART, ) Pre-procedure Exam Last vitals Vital Signs Date Temp Pulse Resp B/P (MAP) Pulse Ox O2 O2 Flow FiO2 Time Delivery Rate 04/15/19 98.5 90 16 121/75 97 Room Air 17:22 (90) Airway: Adequate mouth opening Mallampati: Mallampati I Teeth: Normal Lung: Normal Heart: Normal ASA Physical Status ASA physical status: 1 Emergency: None Planned Anesthetic General/MAC: ETT, LMA Nerve block: Femoral (right), Sciatic (RIGHT) Planned Pain Management Single shot nerve block, Parenteral pain med Pre-operative Attestations Prior to commencing anesthesia and surgery, the patient was re-evaluated, there was verification of: *The patient's identity *The results of appropriate recent lab work and preoperative vital signs *The above evaluation not changing prior to induction *Anesthetic plan, risk benefits, alternative and complications discussed with patient/family; questions answered; patient/family understands, accepts and wishes to proceed. SAMANTHA ASHRAF MD Apr 15, 2019 17:51
[2019-04-15] MEDS ORDERED: DESFLURANE 15 MIN ONE (18:00)
[2019-04-15] MEDS ORDERED: MIDAZOLAM 1 MG/ML 2 ML INJ ONE (18:01)
[2019-04-15] MEDS ORDERED: PROPOFOL 20 ML ONE ×2 (18:01→19:41)
[2019-04-15] MEDS ORDERED: ONDANSETRON 4 MG INJ ONE (18:02)
[2019-04-15] MEDS ORDERED: METOCLOPRAMIDE 10 MG INJ ONE (18:02)
[2019-04-15] MEDS ORDERED: ROPIVACAINE 0.5 % 30 ML VIAL ONE ×2 (18:16→21:08)
--- NOTE | 2019-04-15 18:16 | HPN ---
Date/Time of Note Date/Time of Note DATE: 04/15/19 TIME: 18:16 Interval H&P Admission Note Pt. seen H&P reviewed: No system changes ANIBAL RIVERA MD Apr 15, 2019 18:16
[2019-04-15] MEDS ORDERED: ROPIVACAINE 0.2% 20 ML VIAL ONE (18:22)
[2019-04-15] MEDS ORDERED: FENTAnyl 50 MCG/ML VIAL ONE (18:33)
[2019-04-15] MEDS ORDERED: CEFAZOLIN 1 GM INJ ONE (18:34)
[2019-04-15] MEDS ORDERED: HYDROmorphONE 1 MG/5 ML IV SYRINGE IV PRN ×3 (19:00)
[2019-04-15] MEDS ORDERED: FENTAnyl 50 MCG/ML VIAL IV PRN ×3 (19:00)
[2019-04-15] MEDS ORDERED: KETOROLAC 30 MG INJ IV PRN (19:00)
[2019-04-15] MEDS ORDERED: OXYCODONE/ACETAMINOPHEN (5/325) TAB PO PRN ×2 (19:00)
[2019-04-15] MEDS ORDERED: MEPERIDINE 25 MG INJ IV PRN (19:00)
[2019-04-15] MEDS ORDERED: hydrALAzine 20 MG INJ IV PRN (19:00)
[2019-04-15] MEDS ORDERED: DIPHENHYDRAMINE 50 MG INJ IV PRN (19:00)
[2019-04-15] MEDS ORDERED: LABETALOL HCL 20MG INJ IV PRN (19:00)
[2019-04-15] MEDS ORDERED: ONDANSETRON 4 MG INJ IV PRN (19:00)
[2019-04-15] MEDS ORDERED: BUPIVACAINE 0.5% (SDV) 30 ML INJ ONE (19:03)
[2019-04-15] MEDS ORDERED: POLYMYXIN/BACITRACIN 1L IRRIG IRR ONE ×2 (19:14→20:50)
[2019-04-15] MEDS ORDERED: EPHEDrine 25 MG/5 ML SYG ONE (19:15)
[2019-04-15] MEDS ORDERED: ROCURONIUM 50 MG INJ ONE (19:41)
[2019-04-15] MEDS ORDERED: HYDROmorphONE 2 MG/ML SYG ONE (20:37)
[2019-04-15] MEDS ORDERED: POLYMYXIN/BACITRACIN 1L IRRIG ONE (21:07)
[2019-04-15] MEDS ORDERED: NEOMYC/POLYMYX/BACIT 30 GM OINT ONE (22:44)
[2019-04-15] MEDS ORDERED: POVIDONE IODINE 10% 28.4 GM OINT ONE (22:44)
[2019-04-16] VITALS (16 sets, daily range): BP systolic 112–152; BP diastolic 57–84; PULSE 86–112; RESP 15–21
[2019-04-16] MEDS ORDERED: morphine 2 MG INJ IV PRN
[2019-04-16] MEDS ORDERED: BISACODYL (EC) 5 MG TAB PO PRN
[2019-04-16] MEDS ORDERED: ONDANSETRON 4 MG INJ IV PRN ×2
[2019-04-16] MEDS ORDERED: ACETAMINOPHEN 325 MG TAB PO PRN
[2019-04-16] MEDS ORDERED: DIPHENHYDRAMINE 25 MG CAP PO PRN
[2019-04-16] MEDS ORDERED: NACL 0.9% 3 ML SYG IV SCH
[2019-04-16] MEDS ORDERED: CEFAZOLIN 1 GM INJ IV SCH
--- NOTE | 2019-04-16 00:02 | QN ---
Documentation Job number: [id number] ANIBAL RIVERA MD Apr 16, 2019 00:02
--- NOTE | 2019-04-16 00:13 | HP ---
Date/Time of Note Date/Time of Note DATE: 04/16/19 TIME: 00:12 Assessment/Plan VTE Prophylaxis SCD applied (from Nsg): Yes Pharmacological prophylaxis: NA/contraindicated Pharm contraindication: low risk/ambulating Lines/Catheters IV Catheter Type (from Nrsg): Saline Lock Assessment/Plan Hospital Course This is a 63-year-old female being admitted to the [facility] for: #1 right ankle fracture: Patient is status post Right ankle external fixator removal,Right ankle distal tibial pilon and fibular open reduction internal fixation.Right ankle deltoid repair. Which was performed by . Postop orders as per orthopedic surgery. Will check CBC and BMP and magnesium. Pain management as per Ortho. She will be started on Xarelto on 04/16. She will be nonweightbearing to the right lower extremity. Physical therapy as per orthopedic surgery orders. #2 DVT GI prophylaxis: SCDs, patient will be started on Xarelto per orthopedic surgery, no GI prophylaxis indicated Further treatment strategy will be implemented as per the clinical course. HPI/ROS Admit Date/Time Admit Date/Time Apr 15, 2019 at 21:34 Hx of Present Illness Chief complaint: Right ankle fracture This is a 63-year-old female with a past medical history of fracture dislocation of the right medial pilon and fibula status post closed reduction and external fixator placement multiplanar who presented for elective right ankle external fixator removal, right ankle distal tibia pilon and fibular open reduction internal fixation, right ankle deltoid repair. Patient had her procedure performed by and doing well postop. Patient does report some pain at the surgical site. He denies any nausea vomiting or diarrhea denies any chest pain or shortness of breath. POD #1 Allergies: NKDA Medications: See DEC ROS Const: As per HPI Eyes : No pain discharge or redness or change in visual acuity ENT: No pain, sore throat, congestion, congestion, dysphagia or discharge Respiratory: No shortness of breath, cough, sputum, wheezing, or pleuritic pain Cardiovascular: No chest pain, palpitation, PND, or edema GI : no change in appetite, abdominal pain, nausea, vomiting, diarrhea, constipation, or change in the color his stool Genitourinary: No dysuria, hematuria, flank pain , discharge or CVA tenderness Musculoskeletal: As per HPI Skin: No rash, bruising or hives Neuro: No headache, dizziness, syncope, seizure, focal weakness Endocrine: No polyuria, polydipsia, temperature intolerance Psych: No hallucination, depression, anxiety or suicidal ideation PMH/Family/Social Past Medical History RIGHT ANKLE DISTAL TIBIAL PILON AND FIBULA FRACTURE Medications Current Medications Lactated Ringer's 1,000 ml @ 25 mls/hr Q24H IV ; Start 04/15/19 at 17:30 Cefazolin Sodium (Ancef) 1 gm Q8H IV ; Start 04/16/19 at 00:00; Stop 04/17/19 at 16:01; Status UNV Ondansetron HCl (Zofran Inj) 4 mg Q4H PRN IV NAUSEA AND/OR VOMITING; Start at 00:00; Status UNV Diphenhydramine HCl (Benadryl) 25 mg Q4H PRN PO ITCHING; Start 04/16/19 at 00:00; Status UNV Rivaroxaban (Xarelto) 10 mg WITH DINNER PO ; Start 04/16/19 at 18:00; Status UNV IV Flush (NS 3 ml) 3 ml PER PROTOCOL IV ; Start 04/16/19 at 00:00; Status UNV Ondansetron HCl (Zofran Inj) 4 mg Q6H PRN IV NAUSEA/VOMITING; Start 04/16/19 at 00:00; Status UNV Acetaminophen (Tylenol Tab) 650 mg Q6H PRN PO .PAIN 1-3 OR TEMP; Start 04/16/19 at 00:00; Status UNV Acetaminophen/ Hydrocodone Bitart ([place] (5/325)) 1 tab Q6H PRN PO .MOD PAIN 4- 6; Start 04/16/19 at 00:00; Status UNV Morphine Sulfate (morphine) 2 mg Q4H PRN IV .SEVERE PAIN 7-10; Start 04/16/19 at 00:00; Status UNV Docusate Sodium (Colace) 100 mg Q12H PRN PO .CONSTIPATION; Start 04/16/19 at 00:00; Status UNV Bisacodyl (Dulcolax) 5 mg DAILY PRN PO .CONSTIPATION; Start 04/16/19 at 00:00; Status UNV Coded Allergies: No Known Allergy (Unverified , 04/15/19) Past Surgical History Right ankle distal tibial pilon and fibular fracture dislocation closed reduction Right ankle external fixator placement multiplanar Right ankle external fixator removal. Right ankle distal tibial pilon and fibular open reduction internal fixation. Right ankle deltoid repair. Family History Significant Family History: no pertinent family hx Social History Alcohol Use: occasionally Smoking Status: Never smoker Drug Use: none Exam/Review of Systems Vital Signs Vitals Vital Signs Date Temp Pulse Resp B/P (MAP) Pulse Ox O2 O2 Flow FiO2 Time Delivery Rate 04/15/19 94 20 117/66 94 Nasal 2.0 23:50 (83) Cannula 04/15/19 97.9 23:20 Intake and Output 04/15/19 04/15/19 04/16/19 1515:00 23:00 07:00 IntakeIntake Total 1700 ml OutputOutput Total 50 ml BalanceBalance -50 ml 1700 ml Exam Exam General: Currently lying in bed postoperatively, reports mild pain in the right ankle HEENT: Atraumatic, normocephalic. The pupils are equal, round and reactive. Extraocular motor are intact Neck: Supple with full range of motion. No rigidity or meningismus Chest: Nontender Lungs: Clear to auscultation bilaterally no crackles rales or wheezing Heart: Normal S1-S2, Regular rhythm and rate. No murmur, S3, or S4 Abdomen: Soft , nontender, nondistended , bowel sounds are present. No guarding no rebound tenderness , No masses or organomegaly. No costovertebral temporal angle mass Extremities: Right lower extremity in postop surgical cast, patient is able to wiggle her toes, skin warm Neurologic: Normal mental status, speech normal, cranial nerves II through XII are intact, motor and sensory are intact, gait not assessed secondary to patient nonweightbearing status SAIRA BAXTER Apr 16, 2019 00:13
[2019-04-16] MEDS: LACTATED RINGER'S 1,000 ML IV SCH ×2 (00:35→01:01)
[2019-04-16] MEDS: HYDROmorphONE 1 MG/ML SYG IV PRN ×2 (01:09→06:37)
[2019-04-16] MEDS: oxyCODONE 5 MG TAB PO SCH ×6 (01:21→21:10)
--- NOTE | 2019-04-16 01:43 | OPR ---
DATE OF OPERATION: 04/15/2019 PREOPERATIVE DIAGNOSES: 1. Right tibial pilon fracture and fibular fracture. 2. Right ankle external fixator placement. POSTOPERATIVE DIAGNOSES: 1. Right ankle tibial pilon and fibular fracture. 2. Right ankle external fixator placement. 3. Right ankle deltoid rupture. OPERATION PERFORMED: 1. Right ankle external fixator removal. 2. Right ankle distal tibial pilon and fibular open reduction internal fixation. 3. Right ankle deltoid repair. 4. Application of Amniontic Allograft membrane 5. Use of Allograft Cancellous bone chips SURGEON: Isael Pardo MD AIR VALUE TESTER: None. ANESTHESIA: General with popliteal and adductor block. ANESTHESIOLOGIST: Razia Enriquez MD. TOURNIQUET TIME: 35 minutes at 250 mmHg. ESTIMATED BLOOD LOSS: 50 mL. TRANSFUSION: None. SPECIMENS: None IMPLANTS: 1. Arthrex distal fibular locking plate titanium. 2. Arthrex 2.7 distal tibial locking plate and fibular locking plate. 3. Arthrex 2.7 T plate with associated partial threaded screw. COMPLICATIONS: None. CONDITION UPON PROCEDURE: Stable. DISPOSITION: To PACU. INDICATIONS: The patient is a 63-year-old female who sustained a right ankle distal tibial pilon fracture and fibular fracture approximately 2-1/2 weeks ago that was treated with an external fixator placed and given the amount of swelling, the patient was indicated for swelling reduction and pin site care. The patient was cleared for surgery and brought to the OR today for a final fixation. RISK NOTE: Patient was explained the risks and benefits of surgery and the patient's [place] language including not limited to infection, bleeding, injury to blood vessels, nerves, ligaments or tendons. Risks of anesthesia, deep vein thrombosis and need for reduce future surgery. Patient acknowledged these risk by signing the surgical consent form. DESCRIPTION OF PROCEDURE: The patient was met in the preoperative holding area and the correct operative extremity was marked and confirmed with both patient and consent. The patient was brought to the operative theater and placed on the operating table and was given preoperative antibiotics per anesthesia. Timeout was taken and all parties on the room agreed this was the correct patient, extremity and procedure. A nonsterile tourniquet was placed on the right upper thigh. The external fixator was Betadine washed thoroughly and the pin and bar constructs were removed and the calcaneal pin was cut on the lateral side and then removed from lateral to medial to ensure no extra pin was then tunneled with the bone, and then the remaining lesions removed. The ankle and leg was then reprepped and draped with Betadine thoroughly. Tourniquet was brought up to 250 mmHg. Attention was initially brought over the posterior medial aspect of the ankle with the incision and dissected down to the posterior medial ankle fracture fragment and posterolateral ankle fracture fragment. The interposed fragment and posterolateral ankle malleolar fragment was removed, and the remaining fracture was then reduced. Irrigation was applied and then the ankle was then reduced from A to P and then 2 partially lag screws were placed from anterior and posterior, with care to avoid any injury to the neurovascular structures. Excellent fixation and reduction was shown to be achieved of the posterior malleolus portion of the tibial plafond fracture. Attention was then turned to the distal fibula which was brought out of the fibula and there is extensive comminution seen at this site. The fracture was then reduced and there was minimal bone loss at the comminuted site at the joint. The ankle joint was then irrigated thoroughly. The fracture was then reduced and held in a correct length, alignment and rotation as shown on fluoroscopy. The fracture was then fixated with a distal fibular 1/3 tubular locking plate followed by an anterior fragment fixation of plating obtained with a 2.7 plate. The bone void was then packed with cancellous bone chips mixed with calcium phosphate bone void filler. The wound was then irrigated thoroughly and excellent position was shown to be achieved. Now attention was then turned back to the posterior medial portion of the tibial pilon fracture which was then reduced and held in position and fixated with a 2.7 T plate. At the end the case, the wounds were then irrigated thoroughly again and ankle to be well fixated in both correct length, alignment and rotation. The external fixator sites were curetted thoroughly. All wounds were closed in layers. Beginning with allograft, amniotic membrane was placed over the fracture both medially and laterally and then closed in approximately over the medial incision. The deltoid was shown to be ruptured with superficial and deep component and repaired with a #2 FiberWire on the medial side. The remainder of the wound was irrigated again and amniotic membrane was placed in the medial aspect of the ankle over the fracture and over the deltoid, and then closed again in layers with 2-0 Vicryl followed by 3-0 Monocryl followed by 4-0 nylon. The anterior incision was closed with 3-0 Monocryl followed by 4-0 nylon, and then the lateral incision was irrigated again thoroughly and the membrane was placed and closed with 2-0 Vicryl followed by 3-0 Monocryl and 3-0 and 4-0 nylon. Wounds were dressed with Xeroform, triple antibiotic ointment and placed in a well-padded short leg splint in neutral position. At the end of the case, all sponge and needle counts were correct. The toes were warm and well perfused. The patient is intact and taken to PACU in stable condition. Dictated By: ISAEL BLACKMON/NTS Conf#: [id number] DID#: [id number] MTDD
[2019-04-16] MEDS ORDERED: SODIUM CHLORIDE 0.45% 500 ML BAG IV* ONE (02:00)
[2019-04-16] MEDS: CEFAZOLIN 1 GM/50 ML (PMX) 50 ML IVPB SCH ×3 (06:18→21:04)
[2019-04-16] MEDS: GABAPENTIN 300 MG CAP PO SCH ×2 (08:33→13:47)
--- NOTE | 2019-04-16 08:44 | PAC ---
Date/Time of Note Date/Time of Note DATE: 04/16/19 TIME: 08:43 Post-Anesthesia Notes Post-Anesthesia Note Last documented vital signs Vital Signs Date Temp Pulse Resp B/P (MAP) Pulse Ox O2 O2 Flow FiO2 Time Delivery Rate 04/16/19 98.7 86 15 115/58 100 Nasal 07:42 (77) Cannula 04/16/19 2.0 02:40 Activity: WNL Respiratory function: WNL Cardiovascular function: WNL Mental status: Baseline Pain reasonably controlled: Yes Hydration appropriate: Yes Nausea/Vomiting absent: No SAMANTHA ASHRAF MD Apr 16, 2019 08:44
[2019-04-16] MEDS: HYDROCODONE/APAP (5/325) TAB PO PRN (12:00)
[2019-04-16] MEDS: DOCUSATE SODIUM 100 MG CAP PO PRN (13:56)
--- NOTE | 2019-04-16 16:49 | PN ---
Date/Time of Note Date/Time of Note DATE: 04/16/19 TIME: 16:48 Assessment/Plan VTE Prophylaxis Risk score (from Ns)>0 risk: 9 SCD applied (from Ns): Yes Pharmacological prophylaxis: heparin Lines/Catheters IV Catheter Type (from Nrsg): Peripheral IV Assessment/Plan Hospital Course 63 yo female with ankle fracture s/p ORIF: #1 right ankle fracture: Patient is status post Right ankle external fixator removal,Right ankle distal tibial pilon and fibular open reduction internal f ixation.Right ankle deltoid repair. Which was performed by . Postop orders as per orthopedic surgery. Pain management as per Ortho. She will be started on Xarelto on 04/16. She will be nonweightbearing to the right lower extremity. Physical therapy as per orthopedic surgery orders. #2 DVT GI prophylaxis: SCDs, patient will be started on Xarelto per orthopedic surgery, no GI prophylaxis indicated Further treatment strategy will be implemented as per the clinical course. Result Diagram: 04/16/19 0450 04/16/19 0450 Results 24hrs Laboratory Tests Test 04/16/19 00:16 04/16/19 04:50 White Blood Count 12.4 #H 8.4 # Red Blood Count 3.70 L 3.72 L Hemoglobin 11.4 L 11.4 L Hematocrit 34.8 L 34.7 L Mean Corpuscular Volume 94.1 93.3 Mean Corpuscular Hemoglobin 30.8 30.6 Mean Corpuscular Hemoglobin Concent 32.8 32.9 Red Cell Distribution Width 11.9 12.1 Platelet Count 250 205 Mean Platelet Volume 9.8 10.5 H Immature Granulocytes % 0.400 0.400 Neutrophils % 79.1 H 67.4 Lymphocytes % 14.3 L 21.6 Monocytes % 5.6 10.1 Eosinophils % 0.4 0.4 Basophils % 0.2 0.1 Nucleated Red Blood Cells % 0.0 0.0 Immature Granulocytes # 0.050 H 0.030 Neutrophils # 9.8 H 5.7 Lymphocytes # 1.8 1.8 Monocytes # 0.7 0.9 Eosinophils # 0.1 0.0 Basophils # 0.0 0.0 Nucleated Red Blood Cells # 0.0 0.0 CBC Results Faxed/Phoned 1 *H Sodium Level 146 H 144 Potassium Level 4.4 4.1 Chloride Level 105 105 Carbon Dioxide Level 29 29 Anion Gap 12 10 Blood Urea Nitrogen 17 16 Creatinine 0.64 0.62 Est Glomerular Filtrat Rate mL/min > 60 > 60 Glucose Level 135 115 Calcium Level 9.4 9.2 Total Bilirubin 0.5 0.7 Direct Bilirubin 0.00 0.00 Indirect Bilirubin 0.5 0.7 Aspartate Amino Transf (AST/SGOT) 27 26 Alanine Aminotransferase (ALT/SGPT) 13 17 Alkaline Phosphatase 79 72 Total Protein 6.8 6.5 Albumin 3.8 3.6 Globulin 3.00 2.90 Albumin/Globulin Ratio 1.26 1.24 Magnesium Level 1.8 Subjective 24 Hr Interval Summary Free Text/Dictation Comfortable Working with PT Exam/Review of Systems Exam Vitals Vital Signs Date Temp Pulse Resp B/P (MAP) Pulse Ox O2 O2 Flow FiO2 Time Delivery Rate 04/16/19 98.8 97 16 112/57 98 Room Air 14:08 (75) 04/16/19 2.0 02:40 Intake and Output 04/15/19 04/15/19 04/16/19 1515:00 23:00 07:00 IntakeIntake Total 2575 ml OutputOutput Total 50 ml 500 ml BalanceBalance -50 ml 2075 ml Constitutional: alert, oriented, well developed Psych: no complaints, nl mood/affect Head: normocephalic, atraumatic Eyes: nl conjunctiva, EOMI, nl lids, nl sclera, PERRL ENMT: nl external ears & nose, nl lips & teeth, nl nasal mucosa & septum Neck: supple, non-tender Respiratory: clear to auscultation, normal air movement Cardiovascular: regular rate and rhythm, nl pulses Gastrointestinal: soft, nl liver, spleen, non-tender Musculoskeletal: nl extremities to inspection, nl gait and stance Extremities: normal pulses Neurological: [employer] II-XII intact, nl mental status, nl speech, nl strength Skin: nl turgor; No rash or lesions Lymph: nl lymph nodes Results Results 24hrs Laboratory Tests Test 04/16/19 00:16 04/16/19 04:50 White Blood Count 12.4 #H 8.4 # Red Blood Count 3.70 L 3.72 L Hemoglobin 11.4 L 11.4 L Hematocrit 34.8 L 34.7 L Mean Corpuscular Volume 94.1 93.3 Mean Corpuscular Hemoglobin 30.8 30.6 Mean Corpuscular Hemoglobin Concent 32.8 32.9 Red Cell Distribution Width 11.9 12.1 Platelet Count 250 205 Mean Platelet Volume 9.8 10.5 H Immature Granulocytes % 0.400 0.400 Neutrophils % 79.1 H 67.4 Lymphocytes % 14.3 L 21.6 Monocytes % 5.6 10.1 Eosinophils % 0.4 0.4 Basophils % 0.2 0.1 Nucleated Red Blood Cells % 0.0 0.0 Immature Granulocytes # 0.050 H 0.030 Neutrophils # 9.8 H 5.7 Lymphocytes # 1.8 1.8 Monocytes # 0.7 0.9 Eosinophils # 0.1 0.0 Basophils # 0.0 0.0 Nucleated Red Blood Cells # 0.0 0.0 CBC Results Faxed/Phoned 1 *H Sodium Level 146 H 144 Potassium Level 4.4 4.1 Chloride Level 105 105 Carbon Dioxide Level 29 29 Anion Gap 12 10 Blood Urea Nitrogen 17 16 Creatinine 0.64 0.62 Est Glomerular Filtrat Rate mL/min > 60 > 60 Glucose Level 135 115 Calcium Level 9.4 9.2 Total Bilirubin 0.5 0.7 Direct Bilirubin 0.00 0.00 Indirect Bilirubin 0.5 0.7 Aspartate Amino Transf (AST/SGOT) 27 26 Alanine Aminotransferase (ALT/SGPT) 13 17 Alkaline Phosphatase 79 72 Total Protein 6.8 6.5 Albumin 3.8 3.6 Globulin 3.00 2.90 Albumin/Globulin Ratio 1.26 1.24 Magnesium Level 1.8 Medications Medication Current Medications Diphenhydramine HCl (Benadryl) 25 mg Q4H PRN PO ITCHING; Start 04/16/19 at 00:00 Rivaroxaban (Xarelto) 10 mg WITH DINNER PO ; Start 04/17/19 at 17:55 IV Flush (NS 3 ml) 3 ml PER PROTOCOL IV ; Start 04/16/19 at 00:00 Ondansetron HCl (Zofran Inj) 4 mg Q6H PRN IV NAUSEA/VOMITING; Start 04/16/19 at 00:00 Acetaminophen (Tylenol Tab) 650 mg Q6H PRN PO .PAIN 1-3 OR TEMP; Start 04/16/19 at 00:00 Acetaminophen/ Hydrocodone Bitart ([place] (5/325)) 1 tab Q6H PRN PO .MOD PAIN 4- 6 Last administered on 04/16/19 12:00; Admin Dose 1 TAB; Start 04/16/19 at 00:00 Docusate Sodium (Colace) 100 mg Q12H PRN PO .CONSTIPATION Last administered on 04/16/19 13:56; Admin Dose 100 MG; Start 04/16/19 at 00:00 Bisacodyl (Dulcolax) 5 mg DAILY PRN PO .CONSTIPATION; Start 04/16/19 at 00:00 Oxycodone HCl (Roxicodone) 5 mg Q4H PO Last administered on 04/16/19 13:48; Admin Dose 5 MG; Start 04/16/19 at 01:30 Hydromorphone HCl (Dilaudid) 1 mg Q3H PRN IV SEVERE PAIN LEVEL 7-10 Last administered on 04/16/19 06:37; Admin Dose 1 MG; Start 04/16/19 at 01:30 Cefazolin Sodium 50 ml @ 100 mls/hr Q8 IVPB Last administered on 04/16/19 13:57; Admin Dose 100 MLS/HR; Start 04/16/19 at 06:00; Stop 04/17/19 at 22:29 JACKELIN RICE MD Apr 16, 2019 16:49
[2019-04-17] MEDS: oxyCODONE 5 MG TAB PO SCH ×6 (01:50→22:33)
[2019-04-17 02:00] VITALS: BP 118/63; PULSE 116; RESP 20
[2019-04-17] MEDS: HYDROCODONE/APAP (5/325) TAB PO PRN ×2 (03:06→15:40)
[2019-04-17] MEDS: CEFAZOLIN 1 GM/50 ML (PMX) 50 ML IVPB SCH ×3 (05:52→22:34)
[2019-04-17 07:13] VITALS: BP 132/67; PULSE 93; RESP 18
[2019-04-17] MEDS: IBUPROFEN 600 MG TAB GTB SCH ×2 (13:16→22:33)
[2019-04-17] MEDS: DOCUSATE SODIUM 100 MG CAP PO PRN (13:24)
[2019-04-17 14:19] VITALS: BP 120/63; PULSE 78; RESP 18
--- NOTE | 2019-04-17 14:44 | PN ---
Date/Time of Note Date/Time of Note DATE: 04/17/19 TIME: 14:41 Assessment/Plan VTE Prophylaxis Risk score (from Ns)>0 risk: 9 SCD applied (from Nsg): Yes Pharmacological prophylaxis: heparin Lines/Catheters IV Catheter Type (from Nrsg): Peripheral IV Assessment/Plan Hospital Course 63 yo female with ankle fracture s/p ORIF: #1 right ankle fracture: - status post Right ankle external fixator removal,Right ankle distal tibial pilon and fibular open reduction internal fixation.Right ankle deltoid repair. Which was performed by . - - Postop orders as per orthopedic surgery - Pain control - PT/OT Xarelto for ppx Dispo to ARU vs SNF Result Diagram: 04/17/1943604/17/19436 Results 24hrs Laboratory Tests Test 04/17/19 04:37 White Blood Count 8.1 Red Blood Count 3.44 L Hemoglobin 10.6 L Hematocrit 31.6 L Mean Corpuscular Volume 91.9 Mean Corpuscular Hemoglobin 30.8 Mean Corpuscular Hemoglobin Concent 33.5 Red Cell Distribution Width 12.0 Platelet Count 235 Mean Platelet Volume 9.9 Immature Granulocytes % 0.200 Neutrophils % 61.1 Lymphocytes % 25.7 Monocytes % 11.9 H Eosinophils % 0.7 Basophils % 0.4 Nucleated Red Blood Cells % 0.0 Immature Granulocytes # 0.020 Neutrophils # 5.0 Lymphocytes # 2.1 Monocytes # 1.0 H Eosinophils # 0.1 Basophils # 0.0 Nucleated Red Blood Cells # 0.0 Sodium Level 141 Potassium Level 3.3 L Chloride Level 104 Carbon Dioxide Level 30 Anion Gap 7 Blood Urea Nitrogen 9 Creatinine 0.64 Est Glomerular Filtrat Rate mL/min > 60 Glucose Level 108 Calcium Level 8.6 Total Bilirubin 0.7 Direct Bilirubin 0.00 Indirect Bilirubin 0.7 Aspartate Amino Transf (AST/SGOT) 26 Alanine Aminotransferase (ALT/SGPT) 23 Alkaline Phosphatase 71 Total Protein 6.5 Albumin 3.4 Globulin 3.10 Albumin/Globulin Ratio 1.09 Subjective 24 Hr Interval Summary Free Text/Dictation Tremendous pain overnight in leg Exam/Review of Systems Exam Vitals Vital Signs Date Temp Pulse Resp B/P (MAP) Pulse Ox O2 O2 Flow FiO2 Time Delivery Rate 04/17/19 98.0 78 18 120/63 95 14:19 (82) 04/17/19 Room Air 02:00 04/16/19 2.0 02:40 Intake and Output 04/16/19 04/16/19 04/17/19 1515:00 23:00 07:00 IntakeIntake Total 670 ml 250 ml 50 ml OutputOutput Total 1000 ml BalanceBalance -330 ml 250 ml 50 ml Constitutional: alert, oriented, well developed Psych: no complaints, nl mood/affect Head: normocephalic, atraumatic Eyes: nl conjunctiva, EOMI, nl lids, nl sclera, PERRL ENMT: nl external ears & nose, nl lips & teeth, nl nasal mucosa & septum Neck: supple, non-tender Respiratory: clear to auscultation, normal air movement Cardiovascular: regular rate and rhythm, nl pulses Gastrointestinal: soft, nl liver, spleen, non-tender Musculoskeletal: nl extremities to inspection, nl gait and stance Extremities: normal pulses Neurological: H[employer] ASSOCIATE II-XII intact, nl mental status, nl speech, nl strength Skin: nl turgor; No rash or lesions Lymph: nl lymph nodes Results Results 24hrs Laboratory Tests Test 04/17/19 04:37 White Blood Count 8.1 Red Blood Count 3.44 L Hemoglobin 10.6 L Hematocrit 31.6 L Mean Corpuscular Volume 91.9 Mean Corpuscular Hemoglobin 30.8 Mean Corpuscular Hemoglobin Concent 33.5 Red Cell Distribution Width 12.0 Platelet Count 235 Mean Platelet Volume 9.9 Immature Granulocytes % 0.200 Neutrophils % 61.1 Lymphocytes % 25.7 Monocytes % 11.9 H Eosinophils % 0.7 Basophils % 0.4 Nucleated Red Blood Cells % 0.0 Immature Granulocytes # 0.020 Neutrophils # 5.0 Lymphocytes # 2.1 Monocytes # 1.0 H Eosinophils # 0.1 Basophils # 0.0 Nucleated Red Blood Cells # 0.0 Sodium Level 141 Potassium Level 3.3 L Chloride Level 104 Carbon Dioxide Level 30 Anion Gap 7 Blood Urea Nitrogen 9 Creatinine 0.64 Est Glomerular Filtrat Rate mL/min > 60 Glucose Level 108 Calcium Level 8.6 Total Bilirubin 0.7 Direct Bilirubin 0.00 Indirect Bilirubin 0.7 Aspartate Amino Transf (AST/SGOT) 26 Alanine Aminotransferase (ALT/SGPT) 23 Alkaline Phosphatase 71 Total Protein 6.5 Albumin 3.4 Globulin 3.10 Albumin/Globulin Ratio 1.09 Medications Medication Current Medications Diphenhydramine HCl (Benadryl) 25 mg Q4H PRN PO ITCHING; Start 04/16/19 at 00:00 Rivaroxaban (Xarelto) 10 mg WITH DINNER PO ; Start 04/17/19 at 17:55 IV Flush (NS 3 ml) 3 ml PER PROTOCOL IV ; Start 04/16/19 at 00:00 Ondansetron HCl (Zofran Inj) 4 mg Q6H PRN IV NAUSEA/VOMITING; Start 04/16/19 at 00:00 Acetaminophen (Tylenol Tab) 650 mg Q6H PRN PO .PAIN 1-3 OR TEMP; Start 04/16/19 at 00:00 Acetaminophen/ Hydrocodone Bitart ([place] (5/325)) 1 tab Q6H PRN PO .MOD PAIN 4- 6 Last administered on 04/17/19 03:06; Admin Dose 1 TAB; Start 04/16/19 at 00:00 Docusate Sodium (Colace) 100 mg Q12H PRN PO .CONSTIPATION Last administered on 04/17/19 13:24; Admin Dose 100 MG; Start 04/16/19 at 00:00 Bisacodyl (Dulcolax) 5 mg DAILY PRN PO .CONSTIPATION; Start 04/16/19 at 00:00 Oxycodone HCl (Roxicodone) 5 mg Q4H PO Last administered on 04/17/19 13:16; Admin Dose 5 MG; Start 04/16/19 at 01:30 Hydromorphone HCl (Dilaudid) 1 mg Q3H PRN IV SEVERE PAIN LEVEL 7-10 Last administered on 04/16/19at 06:37; Admin Dose 1 MG; Start 04/16/19 at 01:30 Cefazolin Sodium 50 ml @ 100 mls/hr Q8 IVPB Last administered on 04/17/19 13:21; Admin Dose 100 MLS/HR; Start 04/16/19 at 06:00; Stop 04/17/19 at 22:29 Ibuprofen (Motrin) 600 mg Q8 GTB Last administered on 04/17/19 13:16; Admin Dose 600 MG; Start 04/17/19 at 14:00 JACKELIN RICE MD Apr 17, 2019 14:44
[2019-04-17] MEDS: RIVAROXABAN 10 MG TABLET PO SCH (17:49)
[2019-04-17 19:40] VITALS: BP 102/58; PULSE 74; RESP 18
[2019-04-18 02:00] VITALS: BP 123/74; PULSE 77; RESP 18
[2019-04-18] MEDS: oxyCODONE 5 MG TAB PO SCH ×5 (02:59→17:30)
--- NOTE | 2019-04-18 06:08 | PN ---
Date/Time of Note Date/Time of Note DATE: 04/17/19 TIME: 06:05 Assessment/Plan Lines/Catheters IV Catheter Type (from Nrsg): Saline Lock Assessment/Plan Assessment/Plan POD#1 s/p R Ankle ex fix removal, tibial pilon and fibula ORIF - NWB to the RLE - PT to GT - Xarelto for Dvt prophx - home health - dc when clear with Primary Med - fu in 1 week with me --- Ciera Rivera MD Subjective 24 Hr Interval Summary 04/17/19 NOTE Patient doing better. Pain is controlled. Constitutional: no complaints Feeding: advancing diet Pain Control: well controlled Exam/Review of Systems Vital Signs Vitals Vital Signs Date Temp Pulse Resp B/P (MAP) Pulse Ox O2 O2 Flow FiO2 Time Delivery Rate 04/18/19 98.5 77 18 123/74 93 02:00 (90) 04/17/19 Room Air 02:00 04/16/19 2.0 02:40 Intake and Output 04/17/19 04/17/19 04/18/19 1313:00 21:00 05:00 IntakeIntake Total 50 ml 290 ml 830 ml OutputOutput Total 1 ml 300 ml 500 ml BalanceBalance 49 ml -10 ml 330 ml Exam Musculoskeletal: other (RLE/ Splint intact, toes wiggle, cr brisk, silt to the exposed foot) Results Result Diagram: 04/17/19 0437 04/17/19 0437 ANIBAL RIVERA MD Apr 18, 2019 06:08
--- NOTE | 2019-04-18 06:10 | PDOCDIS ---
Discharge Instructions DIAGNOSIS Discharge Diagnosis right deltoid tear and tibial pilon/fibula fracture CONDITION [id number] Patient Condition: [id number] Good HOME CARE INSTRUCTIONS: [id number] Diet Instructions: [id number] Regular ACTIVITY: [id number] Activity Restrictions: [id number] Rest between Activity Avoid heavy lifting Do not Drive Do not operate Machinery Do not operate Power Tool Avoid Heavy Housework Keep Limb Elevated No Weight Bearing (to The RLE) [id number] Bathing Restrictions: [id number] Shower FOLLOW UP/APPOINTMENTS Follow-up Plan [address] Isael Rivera SCHOOL/WORK RELEASE May return to School/Work with: no return ISAEL RIVERA MD Apr 18, 2019 06:10
[2019-04-18] MEDS ORDERED: RIVA10TA PO (06:13)
[2019-04-18] MEDS: IBUPROFEN 600 MG TAB GTB SCH (06:52)
[2019-04-18 07:51] VITALS: BP 102/61; PULSE 78; RESP 18
--- NOTE | 2019-04-18 11:57 | PN ---
Date/Time of Note Date/Time of Note DATE: 04/18/19 TIME: 11:54 Assessment/Plan VTE Prophylaxis Risk score (from Ns)>0 risk: 5 SCD applied (from Ns): Yes Pharmacological prophylaxis: rivaroxaban Lines/Catheters IV [facility]from [facility] Saline Lock Assessment/Plan Result Diagram: 04/18/19 0500 04/18/19 0500 Results 24hrs Laboratory Tests Test 04/18/19 05:00 White Blood Count 6.1 # Red Blood Count 3.50 L Hemoglobin 10.6 L Hematocrit 32.3 L Mean Corpuscular Volume 92.3 Mean Corpuscular Hemoglobin 30.3 Mean Corpuscular Hemoglobin Concent 32.8 Red Cell Distribution Width 12.0 Platelet Count 242 Mean Platelet Volume 9.9 Immature Granulocytes % 0.300 Neutrophils % 52.9 Lymphocytes % 30.1 Monocytes % 10.1 Eosinophils % 6.1 Basophils % 0.5 Nucleated Red Blood Cells % 0.0 Immature Granulocytes # 0.020 Neutrophils # 3.2 Lymphocytes # 1.8 Monocytes # 0.6 Eosinophils # 0.4 Basophils # 0.0 Nucleated Red Blood Cells # 0.0 Sodium Level 143 Potassium Level 4.4 Chloride Level 104 Carbon Dioxide Level 33 H Anion Gap 6 Blood Urea Nitrogen 8 Creatinine 0.61 Est Glomerular Filtrat Rate mL/min > 60 Glucose Level 133 Calcium Level 9.4 Total Bilirubin 0.5 Direct Bilirubin 0.00 Indirect Bilirubin 0.5 Aspartate Amino Transf (AST/SGOT) 26 Alanine Aminotransferase (ALT/SGPT) 7 L Alkaline Phosphatase 69 Total Protein 6.6 Albumin 3.5 Globulin 3.10 Albumin/Globulin Ratio 1.12 Subjective 24 Hr Interval Summary Free Text/Dictation PT AAOx3. Sitting comfortably in no distress. Toes wiggle. No calf pain/swelling. She is ready to go home. She has mild to moderate post-op pain controlled with pain meds. Exam/Review of Systems Exam Vitals Vital Signs Date Temp Pulse Resp B/P (MAP) Pulse Ox O2 O2 Flow FiO2 Time Delivery Rate 04/18/19 98.2 78 18 102/61 94 Room Air 07:51 (75) 04/16/19 2.0 02:40 Intake and Output 04/17/19 04/17/19 04/18/19 1515:00 23:00 07:00 IntakeIntake Total 50 ml 480 ml 590 ml OutputOutput Total 1 ml 300 ml 500 ml BalanceBalance 49 ml 180 ml 90 ml Results Results 24hrs Laboratory Tests Test 04/18/19 05:00 White Blood Count 6.1 # Red Blood Count 3.50 L Hemoglobin 10.6 L Hematocrit 32.3 L Mean Corpuscular Volume 92.3 Mean Corpuscular Hemoglobin 30.3 Mean Corpuscular Hemoglobin Concent 32.8 Red Cell Distribution Width 12.0 Platelet Count 242 Mean Platelet Volume 9.9 Immature Granulocytes % 0.300 Neutrophils % 52.9 Lymphocytes % 30.1 Monocytes % 10.1 Eosinophils % 6.1 Basophils % 0.5 Nucleated Red Blood Cells % 0.0 Immature Granulocytes # 0.020 Neutrophils # 3.2 Lymphocytes # 1.8 Monocytes # 0.6 Eosinophils # 0.4 Basophils # 0.0 Nucleated Red Blood Cells # 0.0 Sodium Level 143 Potassium Level 4.4 Chloride Level 104 Carbon Dioxide Level 33 H Anion Gap 6 Blood Urea Nitrogen 8 Creatinine 0.61 Est Glomerular Filtrat Rate mL/min > 60 Glucose Level 133 Calcium Level 9.4 Total Bilirubin 0.5 Direct Bilirubin 0.00 Indirect Bilirubin 0.5 Aspartate Amino Transf (AST/SGOT) 26 Alanine Aminotransferase (ALT/SGPT) 7 L Alkaline Phosphatase 69 Total Protein 6.6 Albumin 3.5 Globulin 3.10 Albumin/Globulin Ratio 1.12 Medications Medication Current Medications Diphenhydramine HCl (Benadryl) 25 mg Q4H PRN PO ITCHING; Start 04/16/19 at 00:00 Rivaroxaban (Xarelto) 10 mg WITH DINNER PO Last administered on 04/17/19at 17:49; Admin Dose 10 MG; Start 04/17/19 at 17:55 IV Flush (NS 3 ml) 3 ml PER PROTOCOL IV Last administered on 04/17/19at 22:34; A dmin Dose 3 ML; Start 04/16/19 at 00:00 Ondansetron HCl (Zofran Inj) 4 mg Q6H PRN IV NAUSEA/VOMITING; Start 04/16/19 at 00:00 Acetaminophen (Tylenol Tab) 650 mg Q6H PRN PO .PAIN 1-3 OR TEMP; Start 04/16/19 at 00:00 Acetaminophen/ Hydrocodone Bitart ([place] (5/325)) 1 tab Q6H PRN PO .MOD PAIN 4- 6 Last administered on 04/17/19 15:40; Admin Dose 1 TAB; Start 04/16/19 at 00:00 Docusate Sodium (Colace) 100 mg Q12H PRN PO .CONSTIPATION Last administered on 04/17/19 13:24; Admin Dose 100 MG; Start 04/16/19 at 00:00 Bisacodyl (Dulcolax) 5 mg DAILY PRN PO .CONSTIPATION Last administered on 04/18/19 06:53; Admin Dose 5 MG; Start 04/16/19 at 00:00 Oxycodone HCl (Roxicodone) 5 mg Q4H PO Last administered on 04/18/19 10:03; Admin Dose 5 MG; Start 04/16/19 at 01:30 Hydromorphone HCl (Dilaudid) 1 mg Q3H PRN IV SEVERE PAIN LEVEL 7-10 Last administered on 04/16/19 06:37; Admin Dose 1 MG; Start 04/16/19 at 01:30 Ibuprofen (Motrin) 600 mg Q8 PO ; Start 04/18/19 at 14:00 SHOBHA MARK PA-C Apr 18, 2019 11:57
[2019-04-18] MEDS ORDERED: IBUPROFEN 600 MG TAB PO SCH (14:00)
--- NOTE | 2019-04-18 16:17 | DS ---
Date/Time of Note Date/Time of Note DATE: 04/18/19 TIME: 16:16 Discharge Summary Admission/Discharge Info Admit Date/Time Apr 15, 2019 at 21:34 Discharge Date/Time Discharge Diagnosis right deltoid tear and tibial pilon/fibula fracture Patient Condition: Stable Hospital Course 63 yo female with ankle fracture s/p ORIF: The patinet undewrent Right ankle external fixator removal,Right ankle distal tibial pilon and fibular open reduction internal fixation. Right ankle deltoid repair. This was performed by Following this we helped manage pain. She worked with PT. Xarelto was given for DVT ppx She will be discharged to home with home health PT Home Meds Active Scripts Rivaroxaban* (Xarelto*) 10 Mg Tablet, 10 MG PO WITH DINNER for 42 Days, #42 TAB Prov:ISAEL PARDO MD 04/18/19 Reported Medications Multivitamin/Iron/Folic Acid (Centrum Adults Tablet) 1 Each Tablet, 1 EACH PO DAILY, TAB 03/18/19 Discontinued Scripts Aspirin* (Aspirin* EC) 81 Mg Tablet., 81 MG PO BID, #14 TAB Prov:JORGITO FORD 03/21/19 Ibuprofen* (Ibuprofen*) 600 Mg Tablet, 600 MG PO Q6H PRN for PAIN LEVEL 6-10, #40 TAB Prov:JORGITO FORD 03/21/19 Follow-up Plan [address] Isael Pardo Primary Care Provider Care Physician No Primary Pending Labs Laboratory Tests Test 04/18/19 05:00 White Blood Count 6.1 10^3/ul (4.8-10.8) Red Blood Count 3.50 10^6/ul (4.20-5.40) Hemoglobin 10.6 g/dl (12.0-16.0) Hematocrit 32.3 % (37.0-47.0) Mean Corpuscular Volume 92.3 fl (82.0-101.0) Mean Corpuscular Hemoglobin 30.3 pg (29.0-33.0) Mean Corpuscular Hemoglobin Concent 32.8 g/dl (32.0-37.0) Red Cell Distribution Width 12.0 % (11.5-14.5) Platelet Count 242 10^3/UL (140-415) Mean Platelet Volume 9.9 fl (7.4-10.4) Immature Granulocytes % 0.300 % (0.001-0.429) Neutrophils % 52.9 % (39.0-77.0) Lymphocytes % 30.1 % (15.0-51.0) Monocytes % 10.1 % (0.0-11.0) Eosinophils % 6.1 % (0.0-7.0) Basophils % 0.5 % (0.0-2.0) Nucleated Red Blood Cells % 0.0 /100WBC (0.0-0.0) Immature Granulocytes # 0.020 10^3/ul (0.0-0.031) Neutrophils # 3.2 10^3/ul (1.6-7.5) Lymphocytes # 1.8 10^3/ul (0.8-2.9) Monocytes # 0.6 10^3/ul (0.3-0.9) Eosinophils # 0.4 10^3/ul (0.0-0.5) Basophils # 0.0 10^3/ul (0.0-0.1) Nucleated Red Blood Cells # 0.0 10^3/ul (0.0-0.0) Sodium Level 143 mmol/L (135-144) Potassium Level 4.4 mmol/L (3.5-5.1) Chloride Level 104 mmol/L (97-110) Carbon Dioxide Level 33 mmol/L (21-31) Anion Gap 6 (5-13) Blood Urea Nitrogen 8 mg/dl (7-20) Creatinine 0.61 mg/dl (0.44-1.00) Est Glomerular Filtrat Rate mL/min > 60 mL/min (>60) Glucose Level 133 mg/dl (70-220) Calcium Level 9.4 mg/dl (8.4-10.2) Total Bilirubin 0.5 mg/dl (0.2-1.3) Direct Bilirubin 0.00 mg/dl (0.00-0.20) Indirect Bilirubin 0.5 mg/dl (0-1.1) Aspartate Amino Transf (AST/SGOT) 26 IU/L (15-46) Alanine Aminotransferase (ALT/SGPT) 7 IU/L (13-69) Alkaline Phosphatase 69 IU/L (42-121) Total Protein 6.6 g/dl (6.1-8.1) Albumin 3.5 g/dl (3.3-4.9) Globulin 3.10 g/dl (1.3-3.2) Albumin/Globulin Ratio 1.12 JACKELIN RICE MD Apr 18, 2019 16:17
[2019-04-18] MEDS: RIVAROXABAN 10 MG TABLET PO SCH (18:04)
== END 2019-04-18 18:30 | disposition home health service (06) | DRG 494 ==
LOC: SDS 15:43 → REC 21:34 → SDS 21:34 → MS1 04-16 00:44
PROVIDERS: ADMIT Family Medicine; ATTEND Internal Medicine
PROC: 0MQQ0ZZ Repair Right Ankle Bursa and Ligament, Open Approach (ICD-10-PCS; 2019-04-15)
PROC: 0QUJ0KZ Supplement Right Fibula with Nonautologous Tissue Substitute, Open Approach (ICD-10-PCS; 2019-04-15)
PROC: 0SPFX5Z Removal of External Fixation Device from Right Ankle Joint, External Approach (ICD-10-PCS; 2019-04-15)
PROC: 0QSG04Z Reposition Right Tibia with Internal Fixation Device, Open Approach (ICD-10-PCS; principal; 2019-04-15 18:00)
PROC: 0QSJ04Z Reposition Right Fibula with Internal Fixation Device, Open Approach (ICD-10-PCS; 2019-04-15 18:00)
DX: S82.871A Displaced pilon fracture of right tibia, initial encounter for closed fracture (principal); S82.831A Other fracture of upper and lower end of right fibula, initial encounter for closed fracture; S93.421A Sprain of deltoid ligament of right ankle, initial encounter; X58.XXXA Exposure to other specified factors, initial encounter; G89.18 Other acute postprocedural pain
CPT/HCPCS: 80053; 82306; 83735; 85025; 97110; 97116; 97162; 97530; C1713; J0690; J1170; J2250; J2405; J2765; J2795; J3010